=== PATIENT | male | born 1985 | race Caucasian/White ===

== ENCOUNTER 2021-07-07 12:30 | Emergency (ER) | payer SELFPAY ==
[2021-07-07] VITALS (19 sets, daily range): BP systolic 122–178; BP diastolic 45–98; PULSE 64–84; RESP 7–84; TEMP 36.6–37; O2SAT 95–99
--- NOTE | ~2021-07-07 | CT_ITS ---
EXAMINATION: CT brain wo con DATE: 07/07/2021 14:57 INDICATION: Right-sided headache. TECHNIQUE: Computed tomography (CT) of the head was performed without intravenous contrast. The mA wa s adjusted according to patient size. Iterative reconstruction technique was employed. The dose-lengt h product was 605.33 mGy-cm. COMPARISON: Head CT 01/07/2016 FINDINGS: There is no intracranial hemorrhage, acute infarction, or abnormal intracranial mass lesion . The ventricles are normal in size. There is mild mucosal thickening in the paranasal sinuses. The m astoid air cells are normal. The orbits are normal. IMPRESSION: 1. Normal brain. Reviewed, dictated and finalized at location A. IMPRESSION: 1. Normal brain.
--- NOTE | ~2021-07-07 | XR_ITS ---
EXAMINATION: XR chest 1V 07/07/2021 13:12 INDICATION: Left-sided chest pain PROCEDURE: 2 view chest COMPARISON: 10/14/2004 FINDINGS: The lungs are clear. The cardiomediastinal silhouette is within normal limits. There are no pleural effusions. There is no pneumothorax suspected. IMPRESSION: 1: NO ACUTE CARDIOPULMONARY DISEASE. Reviewed, dictated and finalized at location A.
--- NOTE | 2021-07-07 12:47 | ECG_ITS ---
Measurements Intervals [place] Rate: 81 P: 62 PA: 112 QRS: 17 QRSD: 114 T: 41 QT: 337 QTc: 392 Interpretive Statements SINUS RHYTHM WITH SHORT PA INTERVAL BORDERLINE ECG Electronically Signed On 07-07-2021 13:00:47 CDT by Yung Montaño D.O.
[2021-07-07 13:08] LABS: Basophils Percent Auto 0.5 % (0.2-1.2); Eosinophils Absolute Auto 0.1 K/mm3 (0-0.3); Eosinophils Percent Auto 1.1 % (0-4.4); Hematocrit 45.8 % (42.0-52.0); Hemoglobin 15.6 g/dL (14.0-18.0); Immature Granulocyte Absolute 0.02 K/mm3 (0.00-0.031); Immature Granulocyte Percent A 0.3 % (0-0.5); Lymphocytes Absolute Auto 2.45 K/mm3 (0.9-3.2); Lymphocytes Percent Auto 32.3 % (18.3-44.2); Mean Corpuscular HGB Conc 34.1 g/dl (32-36); Mean Corpuscular Hemoglobin 32.2 pg (26-34); Mean Corpuscular Volume 94.6 fl (80-100); Monocytes Absolute Auto 0.3 K/mm3 (0.1-0.6); Monocytes Percent Auto 4.3 % (2.6-8.5); Neutrophils Absolute Auto 4.7 K/mm3 (1.3-6.7); Neutrophils Percent Auto 61.5 % (45.5-73.1); Platelet Count Result 260 k/mm3 (150-375); Red Blood Count 4.84 M/mm3 (4.6-6.20); Red Cell Distribution Width 12.7 % (11.5-14.5); White Blood Count 7.6 K/mm3 (4.5-10.0)
[2021-07-07 13:17] LABS: INR 0.9; Prothrombin Time 12.2 Seconds (11.1-14.7)
[2021-07-07 13:18] LABS: Partial Thromboplastin Time 26.9 SECONDS (22.3-36.8)
[2021-07-07 13:21] LABS: Alanine Aminotransferase 35 U/L (6-50); Albumin Level 4.8 g/dL (3.5-5.1); Alkaline Phosphatase 66 U/L (38-126); Anion Gap 8 mmol/L (8-16); Aspartate Amino Transferase 40 U/L (17-59); Bilirubin,Total 0.3 mg/dL (0.2-1.3); Blood Urea Nitrogen 16 mg/dL (9-20); Carbon Dioxide 23 mmol/L (22-30); Chloride 104 mmol/L (98-107); Estimated CRCL calculation 110 ml/min; Estimated Glomerular Filt Rate > 60; Glucose 87 mg/dL (65-110); Lipase 54 U/L (23-300); Potassium 3.8 mmol/L (3.4-5.0); Sodium 135 mmol/L (137-145)
[2021-07-07 13:32] LABS: Troponin I < 0.012 ng/mL (0.000-0.034)
--- NOTE | 2021-07-07 15:55 | ED.HA ---
HPI - Headache General Chief Complaint: Headache Stated Complaint: headache x days Time Seen by Provider: 07/07/21 14:44 Source: patient Mode of arrival: ambulatory Limitations: no limitations History of Present Illness HPI Narrative: 36-year-old otherwise healthy here with complaints of right-sided headache on and off for last several weeks. Patient denies any nausea or vomiting or visual problems. No recent trauma , he denies any headache at this time. Wants a CAT scan of the head MD elicited complaint: headache Onset (ago): week(s) Onset description: gradually Location: right and parietal Severity: mild Quality & Timing: aching Exacerbating factors: none Relieving factors: nothing Associated symptoms: none Related Data Allergies Allergy/AdvReac Type Severity Reaction Status Date / Time No Known Allergies Allergy Unverified 01/07/16 16:55 Review of Systems Review of Systems: All systems reviewed & are unremarkable except as noted in HPI and below Constitutional: Constitutional: Reports no additional constitutional complaints Eyes: Eyes: Reports no additional eye complaints ENT: Reports system reviewed and no additional complaints, except as documented Cardiovascular: Cardiovascular: Reports no additional cardiovascular complaints Respiratory: Respiratory: Reports no additional respiratory complaints Gastrointestinal: Gastrointestinal: Reports no additional gastrointestinal complaints Musculoskeletal: Musculoskeletal: Reports no additional musculoskeletal complaints Neurologic: Reports as per HPI Exam Narrative: GENERAL: Well-appearing, well-nourished, and in no acute distress. HEAD: Normocephalic, atraumatic. EYES: PERRLA and EOMI. NECK: Supple. CHEST: Clear to auscultation. No respiratory distress. HEART: Regular rate and rhythm. No murmur heard. Normal peripheral pulses. ABDOMEN: Soft, nontender, nondistended, normal active bowel sounds. EXTREMITIES: Normal range of motion. No edema. SKIN: Warm, dry, no rash. NEURO: No focal deficits. Alert and oriented x3. PSYCH: Normal mood and affect. Course Course Emergency Course: Patient comfortably resting on the bed in no discomfort had to wake him several times to inform him about his lab work, CT findings. States he is feeling much better. Advised him to take medication as prescribed for his headache, follow-up with his primary doctor Vital Signs Vital signs: Vital Signs Temperature 36.7 C 07/07/21 12:48 Pulse Rate 84 07/07/21 12:48 Respiratory Rate 84 H 07/07/21 12:48 Blood Pressure 157/67 H 07/07/21 12:48 Pulse Oximetry 99 07/07/21 12:48 Oxygen Delivery Room Air 07/07/21 12:48 Temperature 36.7 C 07/07/21 12:48 Pulse Rate 71 07/07/21 14:17 Respiratory Rate 14 07/07/21 14:17 Blood Pressure 160/45 H 07/07/21 14:01 Pulse Oximetry 96 07/07/21 14:17 Oxygen Delivery Room Air 07/07/21 12:48 MDM - Headache Lab Data Result diagrams: 07/07/21 13:02 07/07/21 13:02 Labs: Lab Results 07/07/21 07/07/21 07/07/21 Range/Units 13:02 13:02 13:02 WBC 7.6 (4.5-10.0) K/mm3 RBC 4.84 (4.6-6.20) M/mm3 Hgb 15.6 (14.0-18.0) g/dL Hct 45.8 (42.0-52.0) % MCV 94.6 (80-100) fl MCH 32.2 (26-34) pg MCHC 34.1 (32-36) g/dl RDW 12.7 (11.5-14.5) % Plt Count 260 (150-375) k/mm3 MPV 10.0 (7.4-10.4) fl Immature Gran % (Auto) 0.3 (0-0.5) % Neut % (Auto) 61.5 (45.5-73.1) % Lymph % (Auto) 32.3 (18.3-44.2) % [place] % (Auto) 4.3 (2.6-8.5) % Eos % (Auto) 1.1 (0-4.4) % Baso % (Auto) 0.5 (0.2-1.2) % Lymph # (Auto) 2.45 (0.9-3.2) K/mm3 [place] # (Auto) 0.3 (0.1-0.6) K/mm3 Eos # (Auto) 0.1 (0-0.3) K/mm3 Baso # (Auto) 0.0 (0.0-0.1) K/mm3 Abs Immat Gran (auto) 0.02 (0.00-0.031) K/mm3 Absolute Neuts (auto) 4.7 (1.3-6.7) K/mm3 Absolute Nucleated RBC 0.0 (0.0-0.012) K/mm3 Nucleated RBC % 0.0 (
[2021-07-07 16:22] LABS: Troponin I < 0.012 ng/mL (0.000-0.034)
== END 2021-07-07 16:11 | disposition home or self-care (01) ==
PROVIDERS: Emergency Medicine; Emergency Provider Family Medicine; PCP Family Medicine Adolescent Medicine
DX: R51.9 Headache, unspecified (principal); R94.31 Abnormal electrocardiogram [ECG] [EKG]
CPT/HCPCS: 36415; 70450; 71045; 80053; 83690; 84484; 85025; 85610; 85730; 93005; 99284